=== PATIENT | male | born 1950 | race Two or more races ===

== ENCOUNTER 2020-05-07 06:59 | Outpatient (RCR) | payer MEDICARE, OTHER | END 2020-05-08 | LOC: PT 06:59 | PROVIDERS: ATTEND Psychiatry & Neurology Neurology | DX: R26.89 Other abnormalities of gait and mobility (principal); M62.81 Muscle weakness (generalized); R26.9 Unspecified abnormalities of gait and mobility; R26.2 Difficulty in walking, not elsewhere classified | CPT/HCPCS: 97139 ==